=== PATIENT | female | born 1940 | race Caucasian/White ===

== ENCOUNTER 2020-03-30 12:07 | Emergency (ER) | payer MEDICARE ==
[~2020-03-30] VITALS: Ht 162.6 cm; Wt 70.0 kg
--- NOTE | 2020-03-30 12:55 | NUR ---
PT STATES SHE HAD A LAB DRAW AT [facility] YESTERDAY, TODAY PT WAS CALLED BY PCP AND TOLD HER CALCIUM IS ELEVATED AND WAS TOLD TO GO TO THE ER TO BE EVALUATED. PT DENIES SYMPTOMS, STATES "I FEEL FINE" PT TO CARD MONITOR, BP, CONT PULSE OX
[2020-03-30] MEDS ORDERED: SODIUM CHLORIDE FLUSH 10ML SYR IVF ONE (13:00)
[2020-03-30 13:02] LABS: BASOPHILS # (AUTO) 0.03 x10^3/uL (0-0.1); BASOPHILS % (AUTO) 0 % (0-1); EOSINOPHILS # (AUTO) 0.09 x10^3/uL (0-0.4); EOSINOPHILS % (AUTO) 1 % (1-7); LYMPHOCYTES # (AUTO) 2.78 x10^3/uL (1-3.4); LYMPHOCYTES % (AUTO) 33 % (22-44); MD NO; MEAN CORPUSCULAR HEMOGLOBIN 33.5 pg (27.0-34.8); MEAN CORPUSCULAR HGB CONC 33.7 g/dL (32.4-35.8); MEAN PLATELET VOLUME 9.4 fL (7.4-10.4); MONOCYTES # (AUTO) 0.99 x10^3/uL (0.2-0.8); MONOCYTES % (AUTO) 12 % (2-9); NEUTROPHILS # (AUTO) 4.59 x10^3/uL (1.8-6.8); NEUTROPHILS % (AUTO) 54 % (42-75); PLATELET COUNT 189 x10^3/uL (130-400); RED BLOOD COUNT 4.92 x10^6/uL (3.82-5.3); RED CELL DISTRIBUTION WIDTH 12.5 % (9.6-15.2)
[2020-03-30 13:08] LABS: ALANINE AMINOTRANSFERASE 24 U/L (12-78); ALBUMIN 3.8 g/dL (3.4-5.0); ANION GAP 4 mmol/L (5-15); CALCIUM 11.7 mg/dL (8.5-10.1); CHLORIDE 106 mmol/L (98-107); CREATININE 1.17 mg/dL (0.55-1.02)
[2020-03-30 13:11] LABS: ALKALINE PHOSPHATASE 61 U/L (45-117); BILIRUBIN,TOTAL 0.5 mg/dL (0.2-1.0); TOTAL PROTEIN 7.5 g/dL (6.4-8.2)
[2020-03-30 13:29] VITALS: BP 124/52
[2020-03-30] MEDS ORDERED: SODIUM CHLORIDE 0.9% 1,000ML IVBOLUS ONE (13:30)
== END 2020-03-30 15:27 | disposition home or self-care (01) ==
LOC: ED 13:22
DX: E83.52 Hypercalcemia (principal); R94.31 Abnormal electrocardiogram [ECG] [EKG]; I10 Essential (primary) hypertension; E11.9 Type 2 diabetes mellitus without complications
CPT/HCPCS: 36415; 80053; 85025; 93005; 99284

== ENCOUNTER 2020-05-14 07:40 | Outpatient (CLI) | payer MEDICARE | END 2020-05-14 23:59 | disposition home or self-care (01) | LOC: CVU 07:40 | PROVIDERS: ATTEND Internal Medicine Cardiovascular Disease | DX: I65.23 Occlusion and stenosis of bilateral carotid arteries (principal); I08.0 Rheumatic disorders of both mitral and aortic valves; I25.10 Atherosclerotic heart disease of native coronary artery without angina pectoris; I10 Essential (primary) hypertension; M79.606 Pain in leg, unspecified; I70.0 Atherosclerosis of aorta | CPT/HCPCS: 93306; 93356; 93880; 93978 ==

== ENCOUNTER → 2020-05-31 | Outpatient (CLI) | payer MEDICARE | END | disposition home or self-care (01) | LOC: RAD 06:52 | PROVIDERS: ATTEND Family Medicine | DX: M51.36 Other intervertebral disc degeneration, lumbar region (principal); M47.816 Spondylosis without myelopathy or radiculopathy, lumbar region; M48.061 Spinal stenosis, lumbar region without neurogenic claudication; D18.09 Hemangioma of other sites; M71.38 Other bursal cyst, other site; M25.78 Osteophyte, vertebrae | CPT/HCPCS: 72148 ==

== ENCOUNTER 2020-06-19 12:11 | Outpatient (CLI) | payer MEDICARE ==
[~2020-06-19 12:11] MED LIST: REGADENOSON 0.4 MG/5 ML SYRINGE ONE
== END 2020-06-19 23:59 | disposition home or self-care (01) ==
LOC: CFH 12:11
PROVIDERS: ATTEND Internal Medicine Cardiovascular Disease
DX: I25.10 Atherosclerotic heart disease of native coronary artery without angina pectoris (principal); I10 Essential (primary) hypertension
CPT/HCPCS: 78452; 93017; A9502; J2785

== ENCOUNTER → 2020-06-23 | Outpatient (CLI) | payer MEDICARE | END | disposition home or self-care (01) | LOC: RAD 10:32 | PROVIDERS: ATTEND Anesthesiology | DX: S33.130A Subluxation of L3/L4 lumbar vertebra, initial encounter (principal); M51.37 Other intervertebral disc degeneration, lumbosacral region; M48.061 Spinal stenosis, lumbar region without neurogenic claudication; X58.XXXA Exposure to other specified factors, initial encounter; Y93.89 Activity, other specified; Y92.89 Other specified places as the place of occurrence of the external cause; Y99.8 Other external cause status | CPT/HCPCS: 72114 ==

== ENCOUNTER → 2020-09-03 | Outpatient (CLI) | payer MEDICARE ==
[2020-09-03 10:57] LABS: ALBUMIN 3.3 g/dL (3.4-5.0); ANION GAP 7 mmol/L (5-15); CALCIUM 9.1 mg/dL (8.5-10.1); CHLORIDE 107 mmol/L (98-107)
[2020-09-03 11:06] LABS: ALANINE AMINOTRANSFERASE 36 U/L (12-78); ALKALINE PHOSPHATASE 91 U/L (45-117); BILIRUBIN,TOTAL 0.5 mg/dL (0.2-1.0); CHOL/HDL RATIO 4.5; CHOLESTEROL, TOTAL 135 mg/dL (140-239); HDL CHOL % 22 % (28-40); HDL CHOLESTEROL (DIRECT) 30 mg/dL (40-60); LDL CHOLESTEROL,CALCULATED 67 mg/dL (54-169); LDL/HDL RATIO 2.2 (0.5-3.0); TRIGLYCERIDES 192 mg/dL (50-200); VLDL CHOLESTEROL 38 mg/dL (0-25)
== END | disposition home or self-care (01) ==
LOC: LAB 09:33
PROVIDERS: ATTEND Family Medicine
DX: E03.9 Hypothyroidism, unspecified (principal); E11.9 Type 2 diabetes mellitus without complications; E78.2 Mixed hyperlipidemia
CPT/HCPCS: 36415; 80053; 80061; 82043; 82570; 83036; 84439; 84443

== ENCOUNTER → 2020-11-13 | Outpatient (CLI) | payer MEDICARE ==
[~2020-11-13] MED LIST changes: +ALPR0.5T7 PO; +AMLO-150 PO; +ASPI-963 PO; +ATOR20TA86 PO; +B&C/1TAB2 PO; +BENA20TA5 PO; +BUDE3CAP2 PO; +CHLO25TA PO; +CHOL200040 PO; +CLOP75TA52 PO; +FURO20TA3 PO; +GABA-827 PO; +LEVO125C4 PO; +METO50TA4 PO; +PREG75CA68 PO; -REGADENOSON 0.4 MG/5 ML SYRINGE ONE; +VIT1CAPS11 PO; +[UNRECOGNIZED DRUG - CODE] PO
[2020-11-13 09:41] LABS: BASOPHILS % (AUTO) 0 % (0-1); EOSINOPHILS % (AUTO) 0 % (1-7); LYMPHOCYTES % (AUTO) 28 % (22-44); MEAN CORPUSCULAR HEMOGLOBIN 34.5 pg (27.0-34.8); MEAN CORPUSCULAR HGB CONC 34.3 g/dL (32.4-35.8); MEAN PLATELET VOLUME 8.8 fL (7.4-10.4); MONOCYTES % (AUTO) 11 % (2-9); NEUTROPHILS % (AUTO) 60 % (42-75); PLATELET COUNT 176 x10^3/uL (130-400); RED CELL DISTRIBUTION WIDTH 13.2 % (9.6-15.2)
[2020-11-13 09:42] LABS: MD NO
[2020-11-13 09:45] LABS: ALANINE AMINOTRANSFERASE 35 U/L (12-78); CHLORIDE 110 mmol/L (98-107)
[2020-11-13 09:52] LABS: ALBUMIN 3.6 g/dL (3.4-5.0); ALKALINE PHOSPHATASE 74 U/L (45-117); ANION GAP 6 mmol/L (5-15); BILIRUBIN,TOTAL 0.7 mg/dL (0.2-1.0); CALCIUM 9.5 mg/dL (8.5-10.1); CHOL/HDL RATIO 2.8; CHOLESTEROL, TOTAL 142 mg/dL (140-239); CREATININE 0.91 mg/dL (0.55-1.02); HDL CHOL % 35 % (28-40); HDL CHOLESTEROL (DIRECT) 50 mg/dL (40-60); LDL CHOLESTEROL,CALCULATED 65 mg/dL (54-169); LDL/HDL RATIO 1.3 (0.5-3.0); TOTAL PROTEIN 7.2 g/dL (6.4-8.2); TRIGLYCERIDES 136 mg/dL (50-200); VLDL CHOLESTEROL 27 mg/dL (0-25)
== END | disposition home or self-care (01) ==
LOC: LAB 09:14
PROVIDERS: ATTEND Registered Nurse
DX: I10 Essential (primary) hypertension (principal); I25.10 Atherosclerotic heart disease of native coronary artery without angina pectoris; E78.2 Mixed hyperlipidemia
CPT/HCPCS: 36415; 80053; 80061; 85025

== ENCOUNTER → 2021-02-12 | Outpatient (CLI) | payer MEDICARE ==
[2021-02-12 11:13] LABS: ALBUMIN 3.5 g/dL (3.4-5.0); ANION GAP 4 mmol/L (5-15); CALCIUM 8.9 mg/dL (8.5-10.1); CHLORIDE 105 mmol/L (98-107)
[2021-02-12 11:21] LABS: ALANINE AMINOTRANSFERASE 41 U/L (12-78); ALKALINE PHOSPHATASE 103 U/L (45-117); BILIRUBIN,TOTAL 0.5 mg/dL (0.2-1.0); CHOL/HDL RATIO 3.2; CHOLESTEROL, TOTAL 139 mg/dL (140-239); CREATININE 0.91 mg/dL (0.55-1.02); HDL CHOL % 31 % (28-40); HDL CHOLESTEROL (DIRECT) 43 mg/dL (40-60); LDL CHOLESTEROL,CALCULATED 69 mg/dL (54-169); LDL/HDL RATIO 1.6 (0.5-3.0); TOTAL PROTEIN 7.1 g/dL (6.4-8.2); TRIGLYCERIDES 136 mg/dL (50-200); VLDL CHOLESTEROL 27 mg/dL (0-25)
== END | disposition home or self-care (01) ==
LOC: LAB 10:32
PROVIDERS: ATTEND Family Medicine
DX: E78.2 Mixed hyperlipidemia (principal); E11.40 Type 2 diabetes mellitus with diabetic neuropathy, unspecified; E03.9 Hypothyroidism, unspecified
CPT/HCPCS: 36415; 80053; 80061; 82043; 82570; 83036; 84439; 84443

== ENCOUNTER 2021-02-18 12:49 | Emergency (ER) | payer MEDICARE ==
[~2021-02-18] VITALS: Ht 162.6 cm; Wt 72.0 kg
--- NOTE | 2021-02-18 13:20 | NUR ---
ASSISTED PT INTO WHEELCHAIR FOR COMFORT, STATES THE GURNEY IS TOO HARD ON HER R LEG. AT ,
--- NOTE | 2021-02-18 13:25 | NUR ---
ERP AT BS.
--- NOTE | 2021-02-18 13:26 | NUR ---
PT REPORTS SHE'S NORMALLY BARELY ABLE TO WALK AT HOME D/T CHRONIC BACK PAIN, BUT HAS BEEN IMPROVING, UNTIL THIS INCIDENT 2 WEEKS AGO (RUNNING AFTER CAT). STATES HER PAIN MD ORDERED AN MRI LAST WEEK AND MORE PAIN MEDS, BUT HER PHARMACY WAS CLOSED THIS WEEKEND.
[2021-02-18] MEDS ORDERED: ONDANSETRON ODT 4 MG ONE (13:47)
[2021-02-18] MEDS ORDERED: ONDANSETRON ODT 4 MG PO ONE (14:00)
--- NOTE | 2021-02-18 14:19 | NUR ---
PT WAS MEDICATED FOR PAIN. TO XR VIA WC.
[2021-02-18 14:57] VITALS: BP 112/52
== END 2021-02-18 16:04 | disposition home or self-care (01) ==
LOC: ED 15:19
DX: S76.111A Strain of right quadriceps muscle, fascia and tendon, initial encounter (principal); M79.651 Pain in right thigh; F17.200 Nicotine dependence, unspecified, uncomplicated; X58.XXXA Exposure to other specified factors, initial encounter; Y93.89 Activity, other specified; Y92.009 Unspecified place in unspecified non-institutional (private) residence as the place of occurrence of the external cause; Y99.8 Other external cause status
CPT/HCPCS: 73502; 99283; Q0162

== ENCOUNTER → 2021-02-22 | Outpatient (CLI) | payer MEDICARE | END | disposition home or self-care (01) | LOC: RAD 11:08 | PROVIDERS: ATTEND Anesthesiology | DX: M47.816 Spondylosis without myelopathy or radiculopathy, lumbar region (principal); M48.07 Spinal stenosis, lumbosacral region | CPT/HCPCS: 72148 ==

== ENCOUNTER 2021-03-04 12:49 | Outpatient (CLI) | payer MEDICARE ==
[2021-03-04] MEDS ORDERED: FENTANYL PF 100 MCG/2ML ONE (14:09)
[2021-03-04] MEDS ORDERED: MIDAZOLAM 1 MG/ML, 5ML ONE (14:09)
== END 2021-03-04 23:59 | disposition home or self-care (01) ==
LOC: RAD 12:49
PROVIDERS: ATTEND Anesthesiology
DX: M25.551 Pain in right hip (principal); I10 Essential (primary) hypertension; E11.9 Type 2 diabetes mellitus without complications; I25.2 Old myocardial infarction; Z88.5 Allergy status to narcotic agent
CPT/HCPCS: 73721; 99156; 99157; J2250; J3010

== ENCOUNTER 2021-05-03 06:17 | Emergency (ER) | payer MEDICARE ==
[~2021-05-03] VITALS: Ht 162.6 cm; Wt 100.0 kg
--- NOTE | 2021-05-03 06:20 | NUR ---
SHAKING, MOSTLY IN UPPER BODY, STARTED IN OCTOBER STATES ALPRAZOLAM IS WHAT SHE NORMALLY TAKES BUT TODAY IT DID NOT HELP. SHAKING WORSENED TODAY AT 0100. +NAUSEA, 4MG ZOFRAN ODT ENROUTE, AFIB REPORTED BY EMS, NO HISTORY OF AFIB. LOWER EXTREMITIES EDEMATOUS 3+ PITTING, LEFT NORRIS WEEPING WOUND. PLACED ON SPO2/BP/ECG MONITORING ON ARRIVAL. TM.
[2021-05-03] MEDS ORDERED: SODIUM CHLORIDE FLUSH 10ML SYR IVF ONE (06:30)
[2021-05-03] MEDS ORDERED: ONDANSETRON 2MG/ML, 2ML IVPush ONE (06:30)
[2021-05-03] MEDS ORDERED: ONDANSETRON 2MG/ML, 2ML ONE (06:37)
--- NOTE | 2021-05-03 07:01 | NUR ---
report to yang hodge, pt care transferred at this time
--- NOTE | 2021-05-03 07:01 | NUR ---
REPORT FROM AUGUST VILLAGOMEZ FOR TRANSFER OF PATIENT CARE.
--- NOTE | 2021-05-03 07:03 | NUR ---
PATIENT IN IMAGING.
[2021-05-03 07:36] VITALS: BP 125/57
--- NOTE | 2021-05-03 07:38 | NUR ---
PATIENT BACK IN ROOM, O2 SATURATION DOWN TO 81% WHILE SLEEPING. PLACED ON 2 LPM NC AND O2 SATURATION UP TO 94%, DENIES PAIN. SPOUSE AT BEDSIDE, CALL LIGHT WITHIN REACH. WAITING FOR LABS.
--- NOTE | 2021-05-03 07:41 | NUR ---
OXYGEN SYSTEM TESTER AT BEDSIDE.
[2021-05-03 08:06] LABS: BASOPHILS % (AUTO) 0 % (0-1); EOSINOPHILS % (AUTO) 0 % (1-7); LYMPHOCYTES % (AUTO) 13 % (22-44); MEAN CORPUSCULAR HGB CONC 33.6 g/dL (32.4-35.8); MEAN PLATELET VOLUME 8.3 fL (7.4-10.4); MONOCYTES % (AUTO) 10 % (2-9); NEUTROPHILS % (AUTO) 76 % (42-75); PLATELET COUNT 195 x10^3/uL (130-400); RED BLOOD COUNT 4.72 x10^6/uL (3.82-5.3); RED CELL DISTRIBUTION WIDTH 13.8 % (9.6-15.2)
[2021-05-03 08:09] LABS: ALANINE AMINOTRANSFERASE 32 U/L (12-78); ALBUMIN 2.8 g/dL (3.4-5.0); ANION GAP 8 mmol/L (5-15); CALCIUM 8.9 mg/dL (8.5-10.1); CHLORIDE 104 mmol/L (98-107); CREATININE 0.89 mg/dL (0.55-1.02)
[2021-05-03 08:11] LABS: ALKALINE PHOSPHATASE 88 U/L (45-117); BILIRUBIN,TOTAL 0.8 mg/dL (0.2-1.0); TOTAL PROTEIN 6.8 g/dL (6.4-8.2)
--- NOTE | 2021-05-03 10:45 | NUR ---
Pt assisted to ambulate to use phone in hallway. Pt's family member is on their way to pick pt up. Pt provided socks to wear home.
--- NOTE | 2021-05-03 11:10 | NUR ---
IV removed with tip intact. Patient given discharge instructions and prescription and they have confirmed that they understand the instructions. Patient wheeled out of ED by significant other. NAD, all questions answered appropriately, denies additional needs at this time. No personal belongings left in room after discharge.
== END 2021-05-03 11:11 | disposition home or self-care (01) ==
LOC: ED 06:34
DX: L03.116 Cellulitis of left lower limb (principal); R25.1 Tremor, unspecified; I10 Essential (primary) hypertension; E11.9 Type 2 diabetes mellitus without complications; I25.10 Atherosclerotic heart disease of native coronary artery without angina pectoris
CPT/HCPCS: 36415; 74022; 80053; 85025; 96374; 99284; J2405